=== PATIENT | male | born 1985 | race Caucasian/White ===

== ENCOUNTER 2017-10-28 02:41 | Emergency (ER) | payer SELFPAY ==
[~2017-10-28] VITALS: Ht 170.2 cm; Wt 99.2 kg
[2017-10-28] MEDS ORDERED: AFRIN 12 HOUR0.05 % (03:38)
[2017-10-28] MEDS ORDERED: FLONASE AL50 MCG/ACT (03:38)
[2017-10-28] MEDS ORDERED: AUGMENTIN875TAB PO (03:38)
[2017-10-28 04:01] VITALS: BP 162/95
== END 2017-10-28 04:01 | disposition home or self-care (01) | DRG 153 ==
LOC: ED 02:41
DX: J32.1 Chronic frontal sinusitis (principal); J32.0 Chronic maxillary sinusitis; I10 Essential (primary) hypertension; F17.210 Nicotine dependence, cigarettes, uncomplicated

== ENCOUNTER 2017-11-02 15:29 | Emergency (ER) | payer SELFPAY ==
[~2017-11-02] VITALS: Ht 170.2 cm; Wt 95.0 kg
[~2017-11-02 15:29] MED LIST: AFRIN 12 HOUR0.05 %; AUGMENTIN875TAB PO; FLONASE AL50 MCG/ACT
[2017-11-02] MEDS ORDERED: TRAMADOL HYDROC50 MG PO (16:40)
[2017-11-02] MEDS ORDERED: DOXYCYC MONO100 M1 PO (16:40)
[2017-11-02 16:49] VITALS: BP 146/88
== END 2017-11-02 16:58 | disposition home or self-care (01) | DRG 153 ==
LOC: ED 15:29
DX: J01.90 Acute sinusitis, unspecified (principal); I10 Essential (primary) hypertension; F17.210 Nicotine dependence, cigarettes, uncomplicated